=== PATIENT | male | born 1975 | race Caucasian/White ===

== ENCOUNTER 2017-11-15 12:13 | Emergency (ER) | payer SELFPAY ==
[~2017-11-15] VITALS: Ht 177.8 cm; Wt 79.4 kg
--- NOTE | 2017-11-15 15:27 | NUR ---
REFUSED BLOOD DRAW,WILL TRY AGAIN LATER
--- NOTE | 2017-11-15 16:21 | NUR ---
EMPTY SHEETS ON THE BED, UNABLE TO LOCATE PATIENT
== END 2017-11-15 16:26 | disposition left against medical advice (07) ==
LOC: ER 12:18
DX: Z53.21 Procedure and treatment not carried out due to patient leaving prior to being seen by health care provider (principal)